=== PATIENT | female | born 1985 | race Caucasian/White ===

== ENCOUNTER → 2025-01-13 13:14 | Outpatient (CLI) | payer OTHER, SELFPAY ==
--- NOTE | 2025-01-13 13:17 | DI.US.S_ITS ---
PROCEDURE: US OB >= 14 WEEKS FETUS INDICATIONS: 20 Week anatomy scan OUTSIDE/PRIOR DATING DATA: Last menstrual period (LMP): 08/25/2024. LMP-based estimated date of delivery (SHIKHA): 06/01/2025. First dating scan (date and location): 10/29/2024. Estimated date of delivery (SHIKHA) from first dating scan: 06/03/2025. The calculations are made using the working SHIKHA of 06/01/2025. TECHNIQUE: Real-time scanning was performed of the fetus, with image documentation and biometric measurements. Endovaginal scanning: No COMPARISON: None. FINDINGS: General: A single living intrauterine gestation is present. Presentation: Breech. Placenta: Placental position is anterior , without previa. Amniotic fluid index: 18.2 cm, normal range is 5-24 cm. Single deepest vertical pocket is 4.9 cm. heart rate: 139 beats per minute. Maternal cervical canal: 4.5 cm long. Normal lower limit is 2.5 cm. biometrics: Biparietal diameter: 4.7 cm, 20 week 1 day Head circumference: 17.9 cm, 20 week 2 day Abdominal circumference: 4.8 cm, 20 week 1 day Femur length: 3.9 cm, 19 week 3 day Clinically estimated gestational age: 20 week 1 day Composite gestational age from present scan: 20 week 0 day Estimated weight and percentile: 318 g, 30 percentile Anatomic survey: Neuro: Ventricles are non-dilated at less than 10 mm. Cisterna magna is normal at 3-11 mm. Cerebellum is normal in size and morphology. Nuchal skin fold: Normal at less than 6 mm between 14-21 weeks gestational age. Face: Nose and lips, facial profile are normal. Spine: No evidence for spina bifida. Heart: 4-chambered heart is present, with normal ventricular outflow tracts. Diaphragm: Diaphragm is intact. Stomach: Left-sided stomach is present. Kidneys: No hydronephrosis. Normal is less than 5 mm in 2nd trimester, less than 7 mm in 3rd trimester. Cord: 3-vessel cord has orthotopic insertion. Bladder: Normal in size. Extremities: All 4 extremities identified. IMPRESSION: Single live intrauterine consistent with 20 week 0 day gestation. Marginal placental cord insertion 1.1 cm from the placental edge. Otherwise normal anatomic survey Approved by: Ellis Rabago M.D. on 01/13/2025 at 17:57
== END ==
PROVIDERS: Referring Provider Nurse Practitioner Obstetrics & Gynecology; Visit Provider Nurse Practitioner Obstetrics & Gynecology
DX: O43.192 Other malformation of placenta, second trimester (principal); Z3A.20 20 weeks gestation of pregnancy
CPT/HCPCS: 76811

== ENCOUNTER 2025-05-28 17:01 | Inpatient (IN) | payer OTHER, SELFPAY ==
[2025-05-28 19:19] VITALS: BP 135/84
[2025-05-28] MEDS: MINERAL OIL 30 ML UDC TOP (19:52)
--- NOTE | 2025-05-28 23:10 | PM.OBPNLAB ---
Date/Time Date Patient Seen: 05/28/25 Time Patient Seen: 23:00 Pain Control Pain control: other (n/a) Comments: Jayna doing well; watching a movie. Requesting hydroxyzine to sleep. Wants to take NPH insulin at 2330 to be consistent with usual timing. Dutch with her, providing support. Pelvic Exam station: -2 Comments: No exam. VS: 133/79, 93 bpm, 35.9 C, 97% Contractions Contraction frequency (min): 0 Contraction pattern: Irregular Status status: Category l Heart Rate Baseline: 135 Monitor Accelerations: Present Monitor Decelerations: Absent and Variable (single with travon to 110 bpm) Monitor Variability: Moderate Assessment and Plan Comments: Term nullip GDMA2 AMA GBS prophylaxis NOT indicated FHR Cat 1 Misoprostol 50 mcg given at 1945 Plan for 2nd dose approx 2344
[2025-05-29] MEDS: INSULIN NPH 100 UNIT/ML 10ML VIAL 6 UNIT SUBCUT (00:55)
--- NOTE | 2025-05-29 03:54 | PM.OBPNLAB ---
Date/Time Date Patient Seen: 05/29/25 Time Patient Seen: 03:00 Pain Control Comments: Jayna working hard with contractions that began intense soon after SROM at 0043. Sitting on ball using nitrous oxide now, considering epidural initially and then requested. Dutch providing physical and emotional support. 2nd dose of misoprostol never given/indicated. No BGs performed except with CMP despite order placed. VS: 127/71 at 0212; 150/97 during epidural placement with HR 89 bpm. HR rosemary with catheter placement to 180s x 3 minutes, then back to approx 90 bpm. SpO2 100%, BG with labwork/CMP at 2044 = 109. BP with test dose: 139/86. Pelvic Exam Dilation (cm): 5 Effacement (%): 90 station: -1 Amniotic membrane status: Ruptured (light meconium) Comments: Plan for CE after comfortable with epidural. CE performed at 0500. Platelets: 242 Hemoglobin: 12.8 Hematocrit:37.6 AST:29 ALT:18 Creatinine: 0.56 Contractions Monitor mode: External Contraction frequency (min): 3 Contraction duration (min): 1 Contraction pattern: Regular Contraction intensity: Strong/Firm Status status: Category l Heart Rate Baseline: 135 Monitor Accelerations: Present Monitor Decelerations: Absent Monitor Variability: Moderate Assessment and Plan Comments: Term nullip Prophylaxis for GBS not indicated GDMA2 AMA Irregular tachycardia with epidural placement FHR Cat 1 SROM with light meconium Active labor NPH insulin 6 u given at 0006. Epidural requested and administered shortly before 0400 Review normal PET panel (labwork only) BG now and q 2 hours Recommend rest, recheck in 4 hours.
--- NOTE | 2025-05-29 04:26 | PM.AN.REGBLK ---
[facility]ional [facility] <Antoinette Montague CRNA - Last Filed: 05/29/25 06:10> Pre-procedure Procedure: Continuous Lumbar Epidural for L&D Attending OB provider: Rossi Clement PMH/ROS narrative: , IOL for GDM and AMA. Patient using insulin during this . PSH/Anesthesia history narrative: Deferred Exam narrative: Mall 2, prominent incisors, short TM distance ASA Class: II Labs: 05/28/25 plt 242 Medications: Current Medications Generic Name Dose Route Start Last Admin Trade Name Freq PRN Reason Stop Dose Admin Calcium Carbonate 1,000 mg 05/28/25 19:05 Calcium Carbonate 500 Mg Tab PO Q2HR PRN Dyspepsia Carboprost Tromethamine 250 mcg 05/28/25 19:05 Carboprost 250 Mcg/Ml Ampul IM Q90M PRN Bleeding Diphenhydramine HCl 25 mg 05/29/25 04:23 Diphenhydramine 50 Mg/Ml Vial IV Q30M PRN Itching Hydroxyzine HCl 25 mg 05/29/25 00:05 05/29/25 00:59 Hydroxyzine Hcl 25 Mg Tablet PO 25 mg Q4H PRN Administration Nausea Oxytocin/Lactated Ringer's 30 unit in 500 mls @ 200 mls/hr 05/28/25 19:02 Oxytocin Premix IV CONT PRN Bleeding Protocol Oxytocin/Lactated Ringer's 30 unit in 500 mls @ 2 mls/hr 05/28/25 19:15 Oxytocin Premix IV TITRATE TENZIN Protocol 2 MILLIUNIT/MIN Lactated Ringer's 1,000 mls @ 100 mls/hr 05/28/25 19:15 Lactated Ringers IV 05/29/25 05:14 CONT TENZIN Tranexamic Acid 1,000 mg/ 100 mls @ 600 mls/hr 05/28/25 19:06 Sodium Chloride IV NOW PRN Bleeding Lidocaine HCl 20 ml 05/28/25 19:04 Lidocaine 1% 20 Ml INJ INTRA-OP PRN Post Delivery Methylergonovine Maleate 0.2 mg 05/28/25 19:02 Methylergonovine 0.2 Mg Tablet PO Q6HR PRN Heavy Bleeding Methylergonovine Maleate 0.2 mg 05/28/25 19:03 Methylergonovine 0.2 Mg/Ml Vial IM NOW PRN Bleeding Mineral Oil 30 ml 05/28/25 18:10 05/28/25 19:52 Mineral Oil 30 Ml Udc TOP 30 ml PRN PRN Administration Version Misoprostol 50 mcg 05/28/25 19:04 05/28/25 19:45 Misoprostol 25 Mcg Tablet SL 50 mcg Q4H PRN Administration cervical ripening Misoprostol 800 mcg 05/28/25 19:05 Misoprostol 200 Mcg Tablet WA NOW PRN Bleeding Misoprostol 400 mcg 05/28/25 19:06 Misoprostol 200 Mcg Tablet SL NOW PRN Bleeding Nalbuphine HCl 5 mg 05/29/25 04:23 Nalbuphine 20 Mg/Ml Ampul IV Q6H PRN Itching Naloxone HCl 0.2 mg 05/28/25 19:05 Naloxone 0.4 Mg/Ml Vial IV Q2MIN PRN Opiate Reversal Naloxone HCl 0.2 mg 05/29/25 04:23 Naloxone 0.4 Mg/Ml Vial IV Q2MIN PRN Opiate Reversal Ondansetron HCl 4 mg 05/28/25 19:04 Ondansetron 4 Mg/2 Ml Inj IV Q4HR PRN Nausea And Vomiting Ondansetron HCl 4 mg 05/29/25 04:23 Ondansetron 4 Mg/2 Ml Inj IV Q4H PRN Nausea And Vomiting Oxytocin 10 unit 05/28/25 19:02 Oxytocin 10 Unit/Ml Vial IM NOW PRN Bleeding Allergies: Allergies Allergy/AdvReac Type Severity Reaction Status Date / Time horse dander Allergy Intermediate Sneezing Verified 05/28/25 19:44 house dust Allergy Intermediate ITCHING Verified 05/28/25 19:44 dog dander AdvReac Mild Sneezing Verified 05/28/25 19:44 Procedure Insertion date: 05/29/25 Insertion time: 03:45 Prep/Local: 1% lidocaine (chloraprep skin prep, dry x 3 min) Interspace: L4-5 Patient position: sitting Needle: 17 gauge Tuohy Loss of resistance with: saline REID at (cm): 7 Catheter placed at SKIN (cm): 13 Catheter in SPACE (cm): 6 Sensory level: T10 Insertion: No CSF, No Blood, No Paresthesia with insertion, No Paresthesia with injection and No Test dose reaction Initial Medications TEST DOSE time: 04:03 BOLUS DOSE time: 04:15 BOLUS DOSE (mL): 7 BOLUS DOSE med: other (pump solution) Infusion INFUSION: 0.125% bupivacaine and with fentanyl 2 mcg/mL Initial rate (mL/hr): 12 Subsequent interventions: 0448 bolused 10cc 2% lidocaine, changed patient position Patient still painful. Patient unclear with exact complaints, pain location, etc. After discussion, patient requests replacement. Same placement details as first placement. Test dose 0551, negative. REID at 7, cath left at 14cm. No complications, straightforward placement. Patient did state after first epidural was removed that her right leg was numb. Post-procedure Anesthesia date START: 05/29/25 Anesthesia time START: 03:45 <Delicia Dacosta, DO - Last Filed: 05/29/25 14:38> Infusion Subsequent interventions: 0448 bolused 10cc 2% lidocaine, changed patient position Patient still painful. Patient unclear with exact complaints, pain location, etc. After discussion, patient requests replacement. Same placement details as first placement. Test dose 0551, negative. REID at 7, cath left at 14cm. No complications, straightforward placement. Patient did state after first epidural was removed that her right leg was numb. 07:29 - Pt still painful. Assessed for pain. Pt laying R side down, just repositioned. Reports pain down low between legs and in low back. Last dilation assessment was 05:00. Pt is very uncomfortable and crying out during contractions, lying quietly in between. Able to move BLE, but RLE remains somewhat numb. Loss of temperature only in R thigh, nowhere else. Pt declines to reposition for bolus, stating it will hurt too much. Bolus of 2% lido PF given at 07:29 with pt in R lateral decubitus position. Aneta 07:45 - Pt reports contraction pain is the same but shorter after epidural bolus. She is now laying on her back and subjectively appears more comfortable, breathing well through contractions and not crying out. Discussed options with pt and Rossi Clement, who is now in the room. Pt declines third epidural placement, which I agree with. For unknown reasons, the local anesthetics do not seem to be affecting her the usual way. Pt is willing to continue labor with nitrous oxide and prn IV fentanyl. Because pt does appear more comfortable and receiving some benefit from the local bolus, I increased the epidural rate from 12 to 14 ml/hr. Aneta 07:55 - Pt has been rechecked and is now 9.5 cm dilated. Aneta 09:40 - Request for epidural bolus from COLEMAN Chamorro to make pt more comfortable before pushing. Pt reports she never lost mobility in her BLE and demonstrates good movement. Bolus of fentanyl 100 mcg plus lidocaine 2% PF given. Aneta Post-procedure Anesthesia date END: 05/29/25 Anesthesia time END: 11:14 Post-procedure Anesthesia Assessment: Yes CV function: HR/BP stable, Yes Resp function: RR/sat/airway adequate, Yes Post-op hydration adequate, Yes Pain control adequate, Yes Nausea & vomiting absent, Yes Temperature > 36 C, Yes Mental status appropriate and No Anesthesia complications
[2025-05-29] MEDS: ACETAMINOPHEN IV 1,000 MG/100 ML VIAL 400 MG IV (06:42)
[2025-05-29] MEDS: fentaNYL 100 MCG/2 ML INJ 50 MCG IV (06:47)
[2025-05-29 07:27] VITALS: BP 163/104; PULSE 101
[2025-05-29] MEDS: LABETALOL 20 MG/4 ML SYRINGE IV (07:27)
[2025-05-29 08:27] LABS: Add Manual Diff / Slide Review NO; Hematocrit 39.3 % (36-46); Hemoglobin 13.2 g/dL (12.0-16.0); Lymphocytes Absolute Auto 800 /uL (1100-4500); Mean Corpuscular HGB Conc 33.6 % (30-36); Mean Corpuscular Hemoglobin 29.4 PG (26-34); Mean Corpuscular Volume 87.5 fL (80-100); Platelet Count 229 X10^3/uL (150-400)
[2025-05-29 08:39] LABS: Alanine Aminotransferase 20 IU/L (<35); Albumin 3.7 g/dL (3.5-5.0); Albumin Globulin Ratio 1.2 (1.0-2.8); Alkaline Phosphatase 124 U/L (38-126); Blood Urea Nitrogen 12 mg/dL (7-17); Calcium 8.7 mg/dL (8.4-10.2); Carbon Dioxide 16 mmol/L (22-32); Chloride 106 mmol/L (98-107); Estimated Glomerular Filt Rate > 60 mL/min (>60); Globulin 3.2 g/dL (1.7-4.1); Glucose 127 mg/dL (70-99); HEMOLYSIS < 15 (0-50); Potassium 3.7 mmol/L (3.4-5.1); Sodium 132 mmol/L (137-145); Total Protein 6.9 g/dL (6.3-8.2); Uric Acid 4.2 mg/dL (2.5-6.2)
[2025-05-29 08:45] LABS: Protein (Total) Urine Random 66 mg/dL (0-12); Protein Creatinine Ratio Urine 0.65 GRAM/24H
--- NOTE | 2025-05-29 08:50 | P.PNOB_ITS ---
Date/Time Date Patient Seen: 05/29/25 Time Patient Seen: 07:32 Pain Control Pain control: epidural (ineffective despite replacement and lidocaine bolus x 2) Comments: Jayna working hard through contractions despite 2 anesthesiologists and gretchen harris attempts/medications to get her comfortable. Well supported by Dutch. VS: BPs have ranged from 130s/70s to 150s/90s with 3 elevated values: 164/93, 173/97, 163/104 Temp: 35.9 C HR: 97 bpm SpO2: 100% Pelvic Exam Dilation (cm): 9.5 Effacement (%): 90 station: -1 Amniotic membrane status: Ruptured (light meconium) Contractions Monitor mode: External Contraction frequency (min): 3 (2-4) Contraction duration (min): 1 Contraction pattern: Regular Contraction intensity: Strong/Firm Status status: Category ll Heart Rate Baseline: 145 Monitor Accelerations: Present Monitor Decelerations: Late (non-recurrent) Monitor Variability: Moderate Assessment and Plan Comments: Term nullip GDMA2 GBS prophylaxis not indicated Active labor Hypertension in labor FHR Cat 2 Straight catheter to collect urine/empty bladder at 0754 Repeat PET panel and send urine PCR r/to elevated BP Continue present management Monitor BG q 2 hours Anticipate NSVB
--- NOTE | 2025-05-29 09:25 | PM.OBPNLAB ---
Date/Time Date Patient Seen: 05/29/25 Time Patient Seen: 09:25 Pain Control Pain control: epidural (inadequate pain relief) Comments: CNM assuming care from COLEMAN Clement. Patient is in bed on her side, moaning through and breathing with contractions. has received 2 epidurals and multiple epidural boluses that have not resulted in adequate pain relief. BPs have been labile (lowest 127/71- highest 177/100) with occasional severe range (never sustained) since admission. Preeclampsia panel recently repeated. Intermittent straight catherization has shown good urine output and straight cath sample was sent for Pr:Cr. Jayna is feeling a lot of pressure and continues to leak copious amniotic fluid lightly stained with meconium. Her remains supportive at her side. VS: BP 144/74, HR 94bpm, T 36.3C temporal, SpO2 99% on RA Pelvic Exam Dilation (cm): 9.5 Effacement (%): 100 station: 0 Amniotic membrane status: Ruptured (light meconium) Contractions Monitor mode: External Contraction frequency (min): 3 (2-4) Contraction duration (min): 1 Contraction pattern: Regular Contraction intensity: Strong/Firm Status status: Category l Heart Rate Baseline: 150 Monitor Accelerations: Present Monitor Decelerations: Absent Monitor Variability: Moderate Assessment and Plan Assessment: active labor (GDMA2, preeclampsia, SROM X 9 hrs) Plan: continuous present management Comments: Continue expectant management of labor. Pr:CR results with diagnsois of preeclampsia made. WBC elevated with no other sx of infection. Consulted [facility]/, reviewed labs, new preeclampsia diagnosis and labor progression. Discussed starting nifedipine and agrees. Nifedipine XR 30mg now. Anticipate second stage soon.
[2025-05-29] MEDS: NIFEdipine 30 MG TAB ER PO (09:33)
[2025-05-29] MEDS: FENT 2MCG/ML BUPIV 0.125% EPI 200 MCG/100 ML PLAST..BAG 14 MCG EPIDURAL (09:37)
[2025-05-29] MEDS: OXYTOCIN 10 UNIT/ML VIAL IM (11:30)
[2025-05-29] MEDS: OXYTOCIN PREMIX 30 UNIT/500 ML PLAST..BAG 999 UNIT IV (11:39)
[2025-05-29] MEDS: TRANEXAMIC ACID 1,000 MG in SODIUM CHLORIDE 0.9% 100 ML 600 MG IV (11:40)
--- NOTE | 2025-05-29 11:54 | PM.OBPRVD ---
Events: Gestational Diabetes and Labor Induction Labor & Delivery Delivery date: 05/29/25 Delivery Time: 11:14 Intrapartal Events: Mild Preeclampsia Cervical ripening method: per Cervidil protocol Delivery monitor: external FHT and external uterine Route of delivery: L&D Laceration Description: Superficial Quantitative Blood Loss: 600 Anesthesia Type: Epidural Narrative: IOL for GDMA2, initiated with a single dose of misoprostol, resulted in steady labor progression with SROM (<12hrs). Inadequate pain relief with epidural x2 and multiple epidural boluses given. Pushing was initiated at C/C/0 station. Strong maternal efforts, coaching, encouragement and position changes led to steady descent of vertex. RT was called to standby with moderate . Jayna's peripheral IV was dislodged during pushing and unable to be replaced prior to the . NSVB of a vigorous baby boy in LOT position. [place] was sommersaulted through a double tight nuchal cord. The shoulders delivered easily, the baby was detangled from the double nuchal corda and placed on maternal abdomen for drying and skin to skin. 10 units of pitocin was given IM for AMTSL. After cessation of pulsation, the cord was double clamped by CNM and cut by FOB. Cord blood hold sample was collected. Gentle cord traction resulted in large gushes of vaginal bleeding so mispoprostol 400mcg SL was given while a 20G IV was placed in the right hand. Spontaneous delivery of an apparently intact placenta, membranes and 3VC via Garrido mechanism. Fundus massaged firm with brisk bleeding. TXA and IV pitocin were initiated. Bleeding slowed with each additional fundal check and urine was noted so straight catheter was performed for 250mL clear yellow urine. Inspection revealed a superficial left labial laceration with no indication for repair. Fundus firm with minimal vaginal bleeding after exam. Mother and baby stable and skin to skin as I left the room. Baby 1: Infant gender: Male Presentation: vertex Position: Left Occiput Transverse Placenta delivery description: Spontaneous and Normal Configuration Cord Vessel Description: 3 Vessels, Nuchal Cord (x2) and Tight score (1 min): 8 score (5 min): 9 weight: 3.809 kg Plan for aftercare: Routine care (w/ CBC in 8 hours)
[2025-05-29] MEDS: KETOROLAC 30 MG/ML VIAL IV (13:05)
[2025-05-29] MEDS: DERMOPLAST SPRAY 20% 60 ML 1 SPRAY TOP (13:06)
[2025-05-29] MEDS: ACETAMINOPHEN 325 MG TABLET 650 MG PO ×2 (15:09→21:38)
[2025-05-29] MEDS: CALCIUM CARBONATE 500 MG TAB 1000 MG PO (19:18)
[2025-05-29] MEDS: IBUPROFEN 600 MG TABLET PO (19:18)
[2025-05-29 20:01] LABS: Add Manual Diff / Slide Review NO; Hematocrit 35.3 % (36-46); Hemoglobin 12.0 g/dL (12.0-16.0); Lymphocytes Absolute Auto 1900 /uL (1100-4500); Mean Corpuscular HGB Conc 33.9 % (30-36); Mean Corpuscular Hemoglobin 29.6 PG (26-34); Mean Corpuscular Volume 87.5 fL (80-100); Platelet Count 262 X10^3/uL (150-400)
[2025-05-30] MEDS: IBUPROFEN 600 MG TABLET PO ×2 (00:49→07:55)
[2025-05-30] MEDS: ACETAMINOPHEN 325 MG TABLET 650 MG PO ×2 (03:48→10:55)
--- NOTE | 2025-05-30 04:58 | PM.OBDS.1 ---
Discharge Providers Provider Date of admission: 05/28/25 17:01 Discharge Date: 05/30/25 Primary care physician: LUANN Callejas Consults: 05/29/25 12:33 Consult to Final Armature Tester Routine Comment: 05/30/25 04:47 Consult to Physical Therapy Evaluate & Treat Comment: Hip pain post Physician Instructions: Evaluate and Treat Discharge provider: Rossi Clement CNM, ARNP Summary Hospital Course Date Patient Seen: 05/30/25 Time Patient Seen: 04:58 Diagnoses: O80, Z39.1, O14.00 Hospital Course: Jayna arrived for induction of labor. Unable to place vega bulb so misoprostol 50 mcg given buccally x 1 which induced labor. Epidural not effective despite 3 attemps and high dosing by anesthesia. Pre-eclampsia diagnosed during labor. NSVB after 1.5 hours of pushing. Viable son. . course complicated by severe R hip pain so referral to PT initiated. Sent home on nifedipine with blue band and short follow up scheduled. Peripartum Data Delivery Method: Natural Vaginal [place] 1: Gender: Male Disposition of : home Discharge Diagnosis (1) Gestational diabetes mellitus (GDM) affecting , antepartum: Status: Acute Problem Details: GDMA2, on insulin 10 units NPH QHS (2) Hip pain, acute: Status: Acute (3) Breast feeding status of mother: Status: Acute (4) Mild to moderate pre-eclampsia, complicating childbirth: Status: Acute Status at Discharge Cognitive/behavioral status at discharge: oriented and calm Functional status at discharge: independent ambulation Overall status at discharge: patient is progressing back to baseline Time Spent with Patient Time attestation: Total time spent providing and/or coordinating discharge services: Time spent: Less than 30 minutes Specific discharge activities: discharge teaching Objective Labs 05/29/25 19:55 05/29/25 08:17 Labs: Laboratory Results - last 24 hr 05/29/25 05/29/25 05/29/25 07:16 08:00 08:17 WBC 23.9 H D RBC 4.49 Hgb 13.2 Hct 39.3 MCV 87.5 MCH 29.4 MCHC 33.6 RDW 14.5 Plt Count 229 Neut % (Auto) 94.6 H Lymph % (Auto) 3.2 L [place] % (Auto) 2.1 L Eos % (Auto) 0.0 L Baso % (Auto) 0.1 Neut # (Auto) 34521 H Lymph # (Auto) 800 L [place] # (Auto) 500 Eos # (Auto) 0 Baso # (Auto) 0 Sodium 132 L Potassium 3.7 Chloride 106 Carbon Dioxide 16 L BUN 12 Creatinine 0.55 Estimated GFR > 60 BUN/Creatinine Ratio 21.8 Glucose 127 H POC Whole Bld Glucose 125 H Uric Acid 4.2 Calcium 8.7 Total Bilirubin 0.4 AST 30 ALT 20 Alkaline Phosphatase 124 Total Protein 6.9 Albumin 3.7 Globulin 3.2 Albumin/Globulin Ratio 1.2 U Random Total Protein Cancelled 66 H Urine Creatinine Cancelled 100.56 Protein/Creatinin Ratio Cancelled 0.65 05/29/25 19:55 WBC 23.4 H RBC 4.03 Hgb 12.0 Hct 35.3 L MCV 87.5 MCH 29.6 MCHC 33.9 RDW 14.2 Plt Count 262 Neut % (Auto) 82.6 H Lymph % (Auto) 8.0 L [place] % (Auto) 9.3 Eos % (Auto) 0.0 L Baso % (Auto) 0.1 Neut # (Auto) 46530 H Lymph # (Auto) 1900 [place] # (Auto) 2200 H Eos # (Auto) 0 Baso # (Auto) 0 Sodium Potassium Chloride Carbon Dioxide BUN Creatinine Estimated GFR BUN/Creatinine Ratio Glucose POC Whole Bld Glucose Uric Acid Calcium Total Bilirubin AST ALT Alkaline Phosphatase Total Protein Albumin Globulin Albumin/Globulin Ratio U Random Total Protein Urine Creatinine Protein/Creatinin Ratio Exam Vital Signs (past 8 hours): BP: 127/68, 142/85 HR: 108, 94 bpm RR: 17-19/min Temp: 98.1, 97.9 F Other: Fundus firm at U, midline. Lochia scant Perineum intact with minimal edema Discharge Plan Discharge Plan Patient Disposition: Home Discharge orders & Medications Prescriptions: No Action No Known Home Medications Follow up/Referrals: Rossi Clement CNM, ARNP [Advanced Intranet Specialist, [employer]] - 3-5 Days Karla Grijalva ARNP [Primary Care Provider, Nursing] Diet/Activity/Treatments Diet: Diet as Tolerated and Regular Diet comment: increase fiber and fluid Activity: low spivey x 2 weeks Cold/Heat Therapy: as needed for pain Skin/Wound/Dressing Care Skin care: usual care Report to your healthcare provider any signs of infection, such as:: chills, fever, unusual drainage and unusual redness Visit Report/Discharge Packet Stand Alone Forms: Discharge: Care, Patient Portal/API, Stroke Signs & Symptoms Discharge Data Primary Care Provider: Karla Grijalva
[2025-05-30] MEDS: NIFEdipine 30 MG TAB ER PO (09:41)
--- NOTE | 2025-05-30 10:45 | PT.IIE ---
Medical History (Last Reviewed 05/28/25 @ 19:21 by Rossi Clement, COLEMAN, NUCLEAR MEDICINE SPECIALIST) Breast lipoma Gestational diabetes mellitus (GDM) affecting , antepartum History of benign breast biopsy Migraines Supervision of high risk in third trimester Physical Therapy Inpatient Evaluation/Re-Eval M1 PT/OT-IP Prior Functional Status Start: 05/30/25 14:33 Freq: NEEDED Status: Active Protocol: Document 05/30/25 10:45 AB (Rec: 05/30/25 15:08 AB Desktop) Medical Review Prior Functional Status Medical History Yes Reviewed Communication able to make needs known Mobility and Gait I without AD Activities of Daily I Living and IADL's Social History Household Members spouse,family Number of Floors ( One Floor Floors) Number of Stairs To 2 steps without rails to enter Enter/Railing? Home Environment Standard Height Toilet,Walk in Shower Additional Social pt has her spouse and in-laws at home to assist her History Comment M2 PT-IP Current Condition Start: 05/30/25 14:33 Freq: NEEDED Status: Active Protocol: Document 05/30/25 10:45 AB (Rec: 05/30/25 15:08 AB Desktop) Physical Therapy Current Condition Current Condition Evaluation Date 05/30/25 Treatment Diagnosis hip pain; difficulty in walking Onset Date 05/28/25 M3 PT-IP Subjective Start: 05/30/25 14:33 Freq: NEEDED Status: Active Protocol: Document 05/30/25 10:45 AB (Rec: 05/30/25 15:08 AB Desktop) Subjective Physical Therapy Visit Type Type Initial Evaluation Visit Start Time 10:45 Visit Stop Time 12:00 Number of ADMINISTRATOR OF HOME HEALTH Visits 0 Physical Therapy Visit Comments Patient Comments bilateral hip pain R>L and inability to move RLE Therapy Pain Assessment Pain When Pain Assessed At Rest Pain Present Pain Present Pain Reported Location Bilateral Hip Intensity 8 Scale Used increases with movement Pain Management Distraction,Modification of Treatment,Re-positioning, Techniques Timing of Activity with Medications M4 PT-IP Mobility and Gait Start: 05/30/25 14:33 Freq: NEEDED Status: Active Protocol: Document 05/30/25 10:45 AB (Rec: 05/30/25 15:08 AB Desktop) PT-Bed Mobility Assessment Supine to Sit Supine to Sit Maximum Assistance PT-Transfer Assessment Sit to and From Stand Sit to and from Contact Guard Assistance,1 Person Assistance,Use of Stand Upper Extremities Equipment Transfer Assistive None Device Orthotic/Prosthetic No Devices or Brace: Transfers Transfer Destination Toilet Transfer Technique ambulated Transfer Ability Level of Assist Contact Guard Assistance Comments Mobility Comments pt seen in L&D department. pt in bed and and c/o bilateral hip pain after . nurse stated that pt has been pushing for ~ 1.5 hours. Assessed hip and back but limited due to increase pain with even slight movement on BLE. pt with c/o more pain on R hip than L . (+) Roro test suggesting labral tear; also conducted anterior and posterior labral tear test and pt c/o increase groin pain on both test but without clicking; (+) approximation hip tests suggestive of SIJ dysfunction. instructed pt to do pelvic tilts but unable due to pain. unable to do further tests due to increase pain. pt agreed to mobilize. required max A for supine to sit . c/o increase pain and needed assist to move RLE to EOB. sit to stand CGA and pt requested to use the toilet. pt ambulated to the toilet without AD CGA. pt tends to reach for counter/beach for support. pt stated that some relief when inward pressure is applied on lateral sides of pelvis/hips. pt completed toileting needs. ambulated back to bed. max A for sit to supine and needing assist to elevate BLE to bed. explained to pt that she has just given and unable to fully assess pt due to pain and pt will need to go for outpt PT for further testing if pain and limitations persists. informed pt to apply ice and after a few days and do contrast heat/ice on low back and hip. also informed pt that SI belt might help but will need further assessment but currently will not be able to due to pt's inability to tolerate further activities. Advised pt to inform her doctor for further testing and outpt PT Women's health if symptoms does not improve/worsens. pt without further concerns informed nurse as above. Gait Assessment Gait Gait Assistance Contact Guard Assist Required: Distance (Feet) 30 Able to Maintain Yes Weight Bearing Status During Gait Assistive Devices Assistive Device None Orthotic/Prosthetic No Devices or Brace: Gait Deviations General Gait Pattern Decreased Stride Length,Decreased Feet Clearance,Step- to Gait Factors Limiting Gait Function Factors Limiting Decreased Activity Tolerance,Limited Range of Motion, Gait Function Pain PT-Balance Assessment Sitting Balance and Reactions Static Sitting Normal Balance Ability Dynamic Sitting Good Balance Ability Standing Balance and Reactions Static Standing Fair Balance Ability Dynamic Standing Fair Balance Ability Device Used without AD M5 PT-IP Objective Assessments Start: 05/30/25 14:33 Freq: NEEDED Status: Active Protocol: Document 05/30/25 10:45 AB (Rec: 05/30/25 15:08 AB Desktop) Orientation Orientation/Cognition Level of Alertness Alert Orientation Name,Age,Birthday,Month,Date,Year,Day of Week,Place, Situation Language Function No Deficits Noted Ability Safety Awareness Understands Safety Issues Memory Description No Deficits Noted Gross Range of Motion Lower Extremity ROM Assessment Within Functional Limits Strength Lower Extremity Strength Assessment Left Impaired Comments Strength Comments Pain limiting movement and limiting MMT Muscle Tone Muscle Tone WNL Yes M6 PT-IP Treatment Start: 05/30/25 14:33 Freq: NEEDED Status: Active Protocol: Document 05/30/25 10:45 AB (Rec: 05/30/25 15:08 AB Desktop) Physical Therapy Treatment Education Education Provided Safety M7 PT-IP Assessment and Plan Start: 05/30/25 14:33 Freq: NEEDED Status: Active Protocol: Document 05/30/25 10:45 AB (Rec: 05/30/25 15:08 AB Desktop) PT Summary Assessment and Plan Potential Rehabilitation Good Potential Status of Condition Evolving at Evaluation Summary Impairments Pain,ROM,Strength,Bed Mobility,Transfers,Gait,Activity Tolerance Assessment Summary pt seen in L&D department. Pt is a 40 y/o F who c/o B hip pain after giving . Assessed hips and back but limited due to c/o pain with slight movement. educated pt on rest and icing at this time. also advise to inform her doctor for further assessment and outpt PT if symptoms persists or worsens. pt understood. Goals Bed Mobility Goal Independent Transfer Goal Independent Gait Goal Independent Gait Distance 100 Other Goals up/down 2 steps without rails SBA Days to Meet Goals 5 Frequency of Treatment Frequency Of Once a Day Treatment Treatment Plan Physical Therapy Bed Mobility Training,Transfer Training,Gait Training, Treatment Plan Therapeutic Exercise,Balance Retraining,Post Op Education,Discharge Planning,Hot or Cold Pack, Neuromuscular Re-ed,Coordination Retraining,Manual Therapy Recommendations To Nursing Amount of Assist 1 Person Assist Needed Discharge Recommendations PT Discharge Home with Assistance,LTAC Recommendations Transportation Needs Private Vehicle at Discharge - PT assist 1
[2025-05-30 10:55] VITALS: TEMP 36.7
== END 2025-05-30 13:16 | disposition home or self-care (01) | DRG 807 ==
PROVIDERS: Nurse Practitioner Obstetrics & Gynecology; Admitting Provider Advanced Practice Midwife; PCP Nurse Practitioner Family; Referring Provider Advanced Practice Midwife; Visit Provider Advanced Practice Midwife
DX: O24.424 Gestational diabetes mellitus in childbirth, insulin controlled (principal); Z37.0 Single live birth; O14.04 Mild to moderate pre-eclampsia, complicating childbirth; O76 Abnormality in fetal heart rate and rhythm complicating labor and delivery; Z3A.39 39 weeks gestation of pregnancy; Z14.8 Genetic carrier of other disease; O99.893 Other specified diseases and conditions complicating puerperium; M25.551 Pain in right hip
CPT/HCPCS: 36415; 59050; 59200; 80053; 82962; 84550; 85025; 97163; 97530; A9270; J0131; J1885; J2590; J3010; J7050; J7120; S0191